=== PATIENT | male | born 1990 | race Caucasian/White ===

== ENCOUNTER 2023-04-13 18:18 | Inpatient (IN) | payer MEDICAID ==
[~2023-04-13] VITALS: Ht 167.6 cm; Wt 87.1 kg
[2023-04-13 18:34] VITALS: BP 126/89; PULSE 106; RESP 20; TEMP 98; O2SAT 98
[2023-04-13] MEDS ORDERED: NACL 0.9% 1,000 ML IV ONE ×2 (19:45→20:30)
[2023-04-13] MEDS ORDERED: ONDANSETRON 4 MG/2 ML VIAL IVP ONE (19:45)
[2023-04-13 19:52] LABS: BASOPHILS % (AUTO) 0.2 % (0.0-2.0); EOSINOPHILS # (AUTO) 0.1 K/uL (0-0.4); EOSINOPHILS % (AUTO) 0.7 % (0.0-4.0); HEMATOCRIT 45.5 % (36-52); HEMOGLOBIN 15.1 g/dL (12.0-18.0); LYMPHOCYTES # (AUTO) 1.3 K/uL (2.0-11.5); LYMPHOCYTES % (AUTO) 12.9 % (20.5-51.1); MEAN CORPUSCULAR HEMOGLOBIN 29 pg (27-31); MEAN CORPUSCULAR HGB CONC 33 g/dL (33-37); MEAN CORPUSCULAR VOLUME 86.1 fL (80-94); MONOCYTES # (AUTO) 0.5 K/uL (0.8-1.0); MONOCYTES % (AUTO) 4.9 % (1.7-9.3); NEUTROPHILS # (AUTO) 8.1 K/uL (1.8-7.7); NEUTROPHILS % (AUTO) 81.3 % (42.2-75.2); PLATELET COUNT (AUTO) 282 K/uL (140-450); RED BLOOD CELL COUNT(AUTO) 5.29 MIL/uL (4.20-6.10); RED CELL DISTRIBUTION WIDTH 13.5 % (11.6-13.7); WHITE BLOOD COUNT (AUTO) 9.9 K/uL (4.8-10.8)
[2023-04-13 19:57] LABS: FLU A ANTIGEN negative (NEGATIVE); FLU B ANTIGEN negative (NEGATIVE)
[2023-04-13 20:01] LABS: AMPHETAMINE, URINE NEGATIVE ng/ml (NEG <=1000); BARBITURATE, URINE NEGATIVE ng/ml (NEG <=200); BENZODIAZEPINE, URINE NEGATIVE ng/mL (NEG <=200); CANNABINOID, URINE NEGATIVE ng/mL (NEG <=50); COCAINE, URINE NEGATIVE ng/mL (NEG <=300); OPIATE, URINE NEGATIVE ng/mL (NEG <=2000); PHENCYCLIDINE SCREEN,URINE NEGATIVE ng/mL (NEG <=25)
[2023-04-13 20:05] LABS: ALBUMIN 4.1 g/dL (3.4-5.0); ANION GAP 31.7 (8-16); CALCIUM 9.5 mg/dL (8.5-10.1); CARBON DIOXIDE 11.9 mmol/L (21-32); CREATININE 1.3 mg/dL (0.6-1.3); POTASSIUM 4.6 mmol/L (3.5-5.1); TOTAL BILIRUBIN 0.7 mg/dL (0.0-1.0)
[2023-04-13 20:41] LABS: APPEARANCE,URINE CLEAR (CLEAR); BILIRUBIN,URINE NEGATIVE (NEGATIVE); BLOOD, URINE 1+ (NEGATIVE); COLOR,URINE YELLOW (YELLOW); LEUKOCYTE ESTERASE ,URINE NEGATIVE (NEGATIVE); NITRITE, URINE NEGATIVE (NEGATIVE); PROTEIN,URINE 1+ (NEGATIVE); UGLUCOSE 3+ (NEGATIVE); UROBILINOGEN,URINE 0.2 EU/dL (0.2 - 1)
[2023-04-13] MEDS ORDERED: DEXTROSE 50% 50 ML SYR IVP PRN (20:50)
[2023-04-13] MEDS ORDERED: INSULIN REGULAR, HUMAN 100 UNIT in NACL 0.9% 100 ML IV SCH ×2 (20:50)
[2023-04-13 20:51] LABS: BACTERIA,URINE FEW /HPF (None Seen); MUCUS,URINE 1+ /LPF (None Seen); RBC,URINE 0-5 /HPF (0-5); SQUAMOUS EPITHELIAL CELL,UR 4-10 (MOD) /LPF (0-3 (FEW)); TRICHOMONAS,URINE None Seen /HPF (None Seen); WBC,URINE 0-5 /HPF (0-5); YEAST,URINE None Seen /HPF (None Seen)
[2023-04-13] MEDS: BLOOD GLUCOSE MONITORING 1 DEV DEV FS SCH ×4 (21:59→23:50)
[2023-04-13] MEDS: NACL 0.9% 1,000 ML IV SCH (22:00)
[2023-04-13] MEDS: INSULIN REGULAR, HUMAN 100 UNIT in NACL 0.9% 100 ML IV SCH ×2 (22:00)
[2023-04-13 23:00] VITALS: PULSE 94; RESP 20; O2SAT 98
[2023-04-13] MEDS: DEXT 5% / NACL 0.45% 1,000 ML IV SCH (23:19)
[2023-04-13] MEDS ORDERED: ONDANSETRON 4 MG/2 ML VIAL IVP PRN (23:45)
[2023-04-13] MEDS ORDERED: ACETAMINOPHEN 325 MG TAB PO PRN (23:45)
[2023-04-13] MEDS ORDERED: HYDROcodone/APAP 5/325 MG 1 TAB TAB PO PRN (23:45)
[2023-04-14] VITALS (23 sets, daily range): BP systolic 107–130; BP diastolic 68–88; PULSE 70–90; RESP 12–22; TEMP 97.3–98; O2SAT 94–99
[2023-04-14] MEDS: BLOOD GLUCOSE MONITORING 1 DEV DEV FS SCH ×24 (00:50→23:52)
[2023-04-14 01:14] LABS: ANION GAP 27.1 (8-16); CALCIUM 9.1 mg/dL (8.5-10.1); CARBON DIOXIDE 14.7 mmol/L (21-32); CREATININE 1.1 mg/dL (0.6-1.3); POTASSIUM 3.8 mmol/L (3.5-5.1)
[2023-04-14 01:17] LABS: PHOSPHORUS 2.5 mg/dL (2.5-4.9)
[2023-04-14] MEDS: DEXT 5% / NACL 0.45% 1,000 ML IV SCH ×5 (02:00→22:34)
[2023-04-14] MEDS: NACL 0.9% 1,000 ML IV SCH ×5 (02:00→22:00)
[2023-04-14 07:27] LABS: ANION GAP 21.6 (8-16); CALCIUM 8.8 mg/dL (8.5-10.1); CARBON DIOXIDE 17.2 mmol/L (21-32); POTASSIUM 3.8 mmol/L (3.5-5.1)
[2023-04-14 07:35] LABS: MAGNESIUM 2.1 mg/dL (1.8-2.4); PHOSPHORUS 2.1 mg/dL (2.5-4.9)
[2023-04-14 08:35] LABS: PHOSPHORUS 2.3 mg/dL (2.5-4.9)
[2023-04-14 08:59] LABS: ANION GAP 16.5 (8-16); CALCIUM 8.3 mg/dL (8.5-10.1); CARBON DIOXIDE 23.1 mmol/L (21-32); POTASSIUM 3.6 mmol/L (3.5-5.1)
[2023-04-14] MEDS: INSULIN REGULAR, HUMAN 100 UNIT in NACL 0.9% 100 ML IV SCH ×2 (11:12)
[2023-04-14 12:34] LABS: CALCIUM 8.4 mg/dL (8.5-10.1); CARBON DIOXIDE 21.4 mmol/L (21-32); CREATININE 0.9 mg/dL (0.6-1.3); POTASSIUM 3.4 mmol/L (3.5-5.1)
[2023-04-14] MEDS ORDERED: POTASSIUM CHLORIDE 10 MEQ TABER PO SCH (14:00)
[2023-04-14 16:32] LABS: ANION GAP 16.4 (8-16); CALCIUM 8.1 mg/dL (8.5-10.1); CARBON DIOXIDE 19.4 mmol/L (21-32); CREATININE 0.8 mg/dL (0.6-1.3); POTASSIUM 3.8 mmol/L (3.5-5.1)
[2023-04-14 21:16] LABS: CARBON DIOXIDE 21.2 mmol/L (21-32); CREATININE 0.8 mg/dL (0.6-1.3); POTASSIUM 3.2 mmol/L (3.5-5.1)
[2023-04-14] MEDS ORDERED: POTASSIUM PHOSPHATE 15 MM in NACL 0.9% 250 ML IV ONE (21:30)
[2023-04-15] VITALS (18 sets, daily range): BP systolic 97–130; BP diastolic 62–81; PULSE 65–95; RESP 12–22; TEMP 97.2–98; O2SAT 94–100
[2023-04-15 00:57] LABS: ANION GAP 11.8 (8-16); CALCIUM 8.1 mg/dL (8.5-10.1); CARBON DIOXIDE 25.1 mmol/L (21-32); CREATININE 0.7 mg/dL (0.6-1.3)
[2023-04-15 00:58] LABS: MAGNESIUM 1.7 mg/dL (1.8-2.4); PHOSPHORUS 1.4 mg/dL (2.5-4.9); POTASSIUM 2.9 mmol/L (3.5-5.1)
[2023-04-15] MEDS: BLOOD GLUCOSE MONITORING 1 DEV DEV FS SCH ×13 (01:43→21:38)
[2023-04-15] MEDS: NACL 0.9% 1,000 ML IV SCH ×3 (01:46→13:00)
[2023-04-15] MEDS ORDERED: KCL 20 MEQ IN 100 mL PREMIX 200 ML IV PRN (02:25)
[2023-04-15] MEDS: DEXT 5% / NACL 0.45% 1,000 ML IV SCH ×3 (03:00→13:00)
[2023-04-15 04:25] LABS: BASOPHILS % (AUTO) 0.4 % (0.0-2.0); EOSINOPHILS # (AUTO) 0.1 K/uL (0-0.4); EOSINOPHILS % (AUTO) 1.2 % (0.0-4.0); HEMATOCRIT 35.6 % (36-52); HEMOGLOBIN 12.3 g/dL (12.0-18.0); LYMPHOCYTES # (AUTO) 1.4 K/uL (2.0-11.5); LYMPHOCYTES % (AUTO) 22.8 % (20.5-51.1); MEAN CORPUSCULAR HEMOGLOBIN 29 pg (27-31); MEAN CORPUSCULAR HGB CONC 34 g/dL (33-37); MEAN CORPUSCULAR VOLUME 83.4 fL (80-94); MONOCYTES # (AUTO) 0.3 K/uL (0.8-1.0); MONOCYTES % (AUTO) 5.7 % (1.7-9.3); NEUTROPHILS # (AUTO) 4.3 K/uL (1.8-7.7); NEUTROPHILS % (AUTO) 69.9 % (42.2-75.2); PLATELET COUNT (AUTO) 164 K/uL (140-450); RED BLOOD CELL COUNT(AUTO) 4.27 MIL/uL (4.20-6.10); RED CELL DISTRIBUTION WIDTH 13.6 % (11.6-13.7); WHITE BLOOD COUNT (AUTO) 6.1 K/uL (4.8-10.8)
[2023-04-15 04:35] LABS: CALCIUM 7.8 mg/dL (8.5-10.1); CARBON DIOXIDE 24.9 mmol/L (21-32); CREATININE 0.6 mg/dL (0.6-1.3)
[2023-04-15 04:36] LABS: ALBUMIN 2.6 g/dL (3.4-5.0); MAGNESIUM 1.7 mg/dL (1.8-2.4); TOTAL BILIRUBIN 0.4 mg/dL (0.0-1.0); TOTAL PROTEIN, SERUM 5.8 g/dL (6.4-8.2)
[2023-04-15 04:38] LABS: POTASSIUM 2.9 mmol/L (3.5-5.1)
[2023-04-15] MEDS: INSULIN REGULAR, HUMAN 100 UNIT in NACL 0.9% 100 ML IV SCH ×2 (06:54)
[2023-04-15 08:54] LABS: MAGNESIUM 1.6 mg/dL (1.8-2.4); PHOSPHORUS 1.8 mg/dL (2.5-4.9)
[2023-04-15] MEDS ORDERED: POTASSIUM CHLORIDE 40 MEQ, LIDOCAINE 1% 25 MG in NACL 0.9% 250 ML IV ONE (09:10)
[2023-04-15] MEDS ORDERED: POTASSIUM CHLORIDE 10 MEQ TABER PO ONE (09:10)
[2023-04-15] MEDS: INSULIN LANTUS 100 UNITS/ML 10 ML VIAL SUBQ SCH (09:33)
[2023-04-15 09:38] LABS: ANION GAP 14.6 (8-16); CALCIUM 8.3 mg/dL (8.5-10.1); CARBON DIOXIDE 23.6 mmol/L (21-32); CREATININE 0.6 mg/dL (0.6-1.3); POTASSIUM 3.2 mmol/L (3.5-5.1)
[2023-04-15] MEDS ORDERED: POTASSIUM PHOSPHATE 15 MM in NACL 0.9% 250 ML IV ONE (10:00)
[2023-04-15 10:37] LABS: BLOOD GAS BASE EXCESS -2.7 mmol/L (-2.0-2.0); BLOOD GAS HCO3 20.6 mmol/L (22-26); BLOOD GAS PCO2 31.5 mmHg (35-45); BLOOD GAS PH 7.434 (7.35-7.45); BLOOD GAS PO2 84.5 mmHg (75-100)
[2023-04-15 10:38] LABS: BLOOD GAS O2 SAT% 96.5 % (92.0-98.5)
[2023-04-15] MEDS ORDERED: POTASSIUM PHOSPHATE 30 MM in NACL 0.9% 250 ML IV ONE (11:00)
[2023-04-15] MEDS: INSULIN LISPRO SLIDING SCALE 100 UNITS/ML VIAL SUBQ PRN ×3 (11:57→21:44)
[2023-04-15 12:28] LABS: ANION GAP 16.4 (8-16); CALCIUM 8.2 mg/dL (8.5-10.1); CARBON DIOXIDE 22.1 mmol/L (21-32); CREATININE 0.5 mg/dL (0.6-1.3); POTASSIUM 3.5 mmol/L (3.5-5.1)
[2023-04-15] MEDS ORDERED: MAG SULF 2000 MG/WATER PREMIX 50 ML IV SCH (13:00)
[2023-04-16] VITALS: BP 97/62; PULSE 87; RESP 19; TEMP 98; O2SAT 99
[2023-04-16 02:00] VITALS: BP 97/62; PULSE 87; RESP 19; TEMP 98; O2SAT 99
[2023-04-16 04:00] VITALS: BP 110/77; PULSE 92; RESP 20; TEMP 98.8; O2SAT 99
[2023-04-16 06:00] VITALS: BP 110/77; PULSE 92; RESP 20; TEMP 98.8; O2SAT 99
[2023-04-16 08:00] VITALS: BP 101/73; PULSE 89; RESP 18; TEMP 98.2; O2SAT 99
[2023-04-16] MEDS: BLOOD GLUCOSE MONITORING 1 DEV DEV FS SCH ×2 (08:30→11:30)
[2023-04-16] MEDS: INSULIN LANTUS 100 UNITS/ML 10 ML VIAL SUBQ SCH (08:59)
[2023-04-16] MEDS ORDERED: INSU100S22 SUBQ (09:51)
[2023-04-16 13:01] VITALS: BP 101/73; PULSE 89; RESP 18; TEMP 98.2
== END 2023-04-16 14:11 | disposition home or self-care (01) | DRG 420 ==
LOC: MED 18:47 → MMU 21:20 → MIC 22:28 → MTU 04-15 20:05
PROVIDERS: ADMIT Preventive Medicine Preventive Medicine/Occupational Environmental Medicine; ATTEND Preventive Medicine Preventive Medicine/Occupational Environmental Medicine
DX: E11.10 Type 2 diabetes mellitus with ketoacidosis without coma (principal); F17.200 Nicotine dependence, unspecified, uncomplicated; I10 Essential (primary) hypertension; Z20.822 Contact with and (suspected) exposure to COVID-19
CPT/HCPCS: 36415; 36600; 71046; 80048; 80053; 80305; 81001; 82803; 82948; 83735; 83880; 84100; 84484; 85025; 85379; 87081; 93005; 96361; 96374; 99285; J1815; J2405; J3475; J3480; J7030